=== PATIENT | female | born 1955 | race Caucasian/White ===

== ENCOUNTER 2020-09-28 23:15 | Inpatient (IN) | payer BC ==
[~2020-09-28] VITALS: Ht 165.1 cm; Wt 101.8 kg
--- NOTE | 2020-09-28 23:55 | NUR ---
rec'd call from [facility] [place] they state her rapid covid was negative
[2020-09-29] MEDS ORDERED: ASPI81TA30 PO (00:16)
[2020-09-29] MEDS ORDERED: PREG200C PO (00:16)
[2020-09-29] MEDS ORDERED: HYDR-3965 PO (00:16)
[2020-09-29] MEDS ORDERED: SEVE800T8 PO (00:16)
[2020-09-29] MEDS ORDERED: NYSPWD TP (00:16)
[2020-09-29] MEDS ORDERED: FLUO40CA10 PO (00:16)
[2020-09-29] MEDS ORDERED: FURO-149 PO (00:16)
[2020-09-29] MEDS ORDERED: FAMO40TA73 PO (00:16)
[2020-09-29] MEDS ORDERED: ALPR1TAB2 PO (00:16)
[2020-09-29] MEDS ORDERED: OMEP-50 PO (00:16)
[2020-09-29] MEDS ORDERED: FLUO40CA PO (00:16)
[2020-09-29] MEDS ORDERED: ATOR20TA66 PO (00:16)
--- NOTE | 2020-09-29 00:16 | NUR ---
spoke with brittany on phone for med rec. [phone] informed of visitor policy
[2020-09-29] MEDS ORDERED: ondansetron/PF 4mg/2ml inj IV ONE (00:25)
[2020-09-29] MEDS ORDERED: morphine 4 MG/ML inj SYRINge IV ONE (00:25)
[2020-09-29] MEDS ORDERED: potassium Cl 20 mEq SR tablet PO STA (00:28)
[2020-09-29 00:57] LABS: ALANINE AMINOTRANSFERASE 15 U/L (12-78); ALBUMIN 2.4 G/DL (3.4-5.0); ALBUMIN/GLOBULIN RATIO 0.7 (1.1-1.5); ALKALINE PHOSPHATASE 65 IU/L (46-116); ANION GAP 15 (8-16); ASPARTATE AMINO TRANSFERASE 22 U/L (10-37); BILIRUBIN,TOTAL 0.3 MG/DL (0.1-1.0); BLOOD UREA NITROGEN 55 MG/DL (7-18); BUN/CREATININE RATIO 6.4 (6.6-38.0); CALCIUM 7.4 MG/DL (8.5-10.1); CHLORIDE 103 MMOL/L (99-107); CREATININE 8.57 MG/DL (0.40-0.90); GLUCOSE 99 MG/DL (70-104); POTASSIUM 3.2 MMOL/L (3.5-5.1); SODIUM 140 MMOL/L (135-145); TOTAL CARBON DIOXIDE 22.4 MMOL/L (24-32); TOTAL PROTEIN 5.7 G/DL (6.4-8.2); eGFR 5 ML/MIN
[2020-09-29 00:58] LABS: BASOPHILS % (AUTO) 0.2 % (0-1); EOSINOPHILS % (AUTO) 0 % (0-6); HEMOGLOBIN 9.6 g/dl (12.0-16.0); LYMPHOCYTES # (AUTO) 2.8 X10'3 (1.1-4.8); LYMPHOCYTES % (AUTO) 15.8 % (21-51); MEAN CORPUSCULAR HEMOGLOBIN 31.4 PG (27.0-31.0); MEAN CORPUSCULAR HGB CONC 34.4 g/dL (33.0-36.5); MEAN CORPUSCULAR VOLUME 91.4 FL (78-98); MEAN PLATELET VOLUME 9.7 FL (7.4-10.4); MONOCYTES # (AUTO) 1.1 X10'3 (0-0.9); MONOCYTES % (AUTO) 6.4 % (2-12); NEUTROPHILS # (AUTO) 13.8 X10'3 (1.8-7.7); NEUTROPHILS % (AUTO) 77.6 % (42-75); PLATELET COUNT 142 X10'3 (140-440); RED BLOOD COUNT 3.06 X10'6 (4.20-5.60); WHITE BLOOD COUNT 17.8 X10'3 (4.5-11.0)
--- NOTE | 2020-09-29 01:32 | NUR ---
pt back from [place] - pt medicated per JAN. Denies additional needs at this time.
[2020-09-29] MEDS ORDERED: ondansetron/PF 4mg/2ml inj IV PRN (02:55)
[2020-09-29] MEDS ORDERED: acetaminophen 650mg rectal suppository RC PRN (02:55)
[2020-09-29] MEDS ORDERED: acetaminophen 325mg tablet PO PRN ×2 (02:55)
[2020-09-29 04:53] VITALS: BP 89/53
--- NOTE | 2020-09-29 05:12 | NUR ---
to room and oriented to surrounding and procedures--verbalized understanding
--- NOTE | 2020-09-29 06:35 | NUR ---
Patient in room PCU 3013. I have received report from josh DYER and had the opportunity to ask questions and assume patient care.
[2020-09-29 07:00] VITALS: BP 87/52
[2020-09-29] MEDS: furosemide 40mg tablet PO SCH ×2 (08:00→20:02)
[2020-09-29] MEDS ORDERED: ALPRAZolam 0.5mg tablet PO PRN (08:00)
[2020-09-29] MEDS ORDERED: non-formulary drug (Fluoxetine HCl (Prozac) 1 CAP) PO SCH (08:00)
[2020-09-29] MEDS ORDERED: levoFLOXACIN-Levaquin 250mg/D5 50 ML IV SCH (08:00)
[2020-09-29] MEDS: famotidine 20mg tablet PO SCH (08:56)
[2020-09-29] MEDS: aspirin 81mg tablet.DR PO SCH (08:56)
[2020-09-29] MEDS: pantoprazole 40mg Tablet.DR PO SCH ×2 (08:56→20:08)
[2020-09-29] MEDS: docusate sod 100mg capsule PO SCH ×2 (08:57→20:01)
[2020-09-29] MEDS: atorvastatin 20mg tablet PO SCH (08:57)
[2020-09-29] MEDS: HYDROcodone/acetaminophen 5mg/325mg tablet PO SCH ×3 (08:57→20:12)
[2020-09-29] MEDS: pregabalin 25mg capsule PO SCH ×2 (08:58→20:07)
[2020-09-29] MEDS: pregabalin 75mg capsule PO SCH ×2 (08:58→20:07)
[2020-09-29] MEDS: FLUoxetine 20mg capsule PO SCH (08:59)
[2020-09-29] MEDS: heparin, porcine 5000 units/ml vial SQ SCH ×2 (09:00→20:09)
[2020-09-29] MEDS: sevelamer carbonate 800mg tablet PO SCH ×3 (09:19→18:37)
[2020-09-29] MEDS ORDERED: methylPREDNISolone sod succ 125mg/2ml vial IV ONE (11:25)
[2020-09-29] MEDS ORDERED: normal saline 1000ml 1,000 ML IV ONE (11:25)
[2020-09-29 11:28] VITALS: BP 85/50
[2020-09-29] MEDS: ipratropium/albuterol 3ml nebule NEB SCH ×3 (13:00→20:19)
[2020-09-29 15:00] VITALS: BP 100/56
--- NOTE | 2020-09-29 15:00 | NUR ---
patient seen by Marce Hayes, order given to straight cath.as patient said even though she only pees a cup a day she felt distended and uncomfortable. 300 mls observed and specimen sent to lab Iv resited in right upper arm. Patient bolused 500mls NACL as B/P was 85/56. Rechecked 100/56 . patient appeared more stable following bolus, up to BR.will continue to monitor.
[2020-09-29 15:31] LABS: CLARITY,URINE SLIGHTLY CLOUDY (Clear); COLOR,URINE YELLOW (Yellow); UA COLLECTION TYPE STRAIGHT CATH
[2020-09-29 15:32] LABS: GLUCOSE, URINE NEGATIVE (Neg); KETONES,URINE NEGATIVE (Neg); LEUKOCYTE ESTERASE ,URINE NEGATIVE (Neg); NITRITES, URINE NEGATIVE (Neg); OCCULT BLOOD,URINE TRACE-INTACT (Neg); PROTEIN,URINE NEGATIVE (Neg); UROBILINOGEN,URINE 0.2 E.U/dL (0.2-1.0)
[2020-09-29 15:35] LABS: COARSE GRANULAR CAST 0-3 /LPF (NEGATIVE); SQUAMOUS EPITHELIAL CELL,UR FEW /LPF (FEW)
[2020-09-29 15:37] LABS: AMORPHOUS URATES 1+
[2020-09-29 15:38] LABS: BACTERIA,URINE FEW /HPF (Neg); TRANSITIONAL EPI CELLS,URINE FEW /HPF
[2020-09-29 15:39] LABS: WBC,URINE 0-4 /HPF (0-4)
[2020-09-29 18:00] VITALS: BP 100/44
--- NOTE | 2020-09-29 18:50 | NUR ---
Patient in room [facility] 3013. I have received report from Argelia DYER and had the opportunity to ask questions and assume patient care. Addendum: 09/30/20 at 0034 by Tiff May RN Report from Blanca DYER, not Argelia
--- NOTE | 2020-09-29 18:50 | NUR ---
Problems reprioritized. Patient report given, questions answered & plan of care reviewed with Tiff DYER.
[2020-09-29] MEDS: lactobacillus rhamnosus 10,000 MMU CELLS/CAPSULE PO SCH (20:01)
[2020-09-29] MEDS: methylPREDNISolone sod succ 125mg/2ml vial IV SCH (20:15)
[2020-09-29 22:00] VITALS: BP 101/48
--- NOTE | 2020-09-30 00:43 | NUR ---
Earlier on in the shift patient had stated that she felt a little shaky after being hooked up to dialysis. offered to take Accu check just incase and patient agreed. When I came back to room with Accu check machine, patient changed her mind stating that she just needs to go to sleep. Patient has been sleeping/snoring and in no apparent distress thus far.
[2020-09-30 02:00] VITALS: BP 98/56
[2020-09-30] MEDS: methylPREDNISolone sod succ 125mg/2ml vial IV SCH ×2 (02:45→07:39)
[2020-09-30 05:13] LABS: BASOPHILS % (AUTO) 0.1 % (0-1); EOSINOPHILS % (AUTO) 0 % (0-6); HEMATOCRIT 28.5 % (35.0-45.0); HEMOGLOBIN 9.6 g/dl (12.0-16.0); LYMPHOCYTES # (AUTO) 0.6 X10'3 (1.1-4.8); LYMPHOCYTES % (AUTO) 8.8 % (21-51); MEAN CORPUSCULAR HGB CONC 33.5 g/dL (33.0-36.5); MEAN CORPUSCULAR VOLUME 92.6 FL (78-98); MEAN PLATELET VOLUME 9.8 FL (7.4-10.4); MONOCYTES # (AUTO) 0.1 X10'3 (0-0.9); MONOCYTES % (AUTO) 1.6 % (2-12); NEUTROPHILS # (AUTO) 6.3 X10'3 (1.8-7.7); NEUTROPHILS % (AUTO) 89.5 % (42-75); PLATELET COUNT 139 X10'3 (140-440); RED BLOOD COUNT 3.08 X10'6 (4.20-5.60); RED CELL DISTRIBUTION WIDTH 13.9 % (11.5-14.5)
[2020-09-30 05:25] LABS: ALBUMIN 2.6 G/DL (3.4-5.0); ANION GAP 16 (8-16); BLOOD UREA NITROGEN 59 MG/DL (7-18); CALCIUM 8.2 MG/DL (8.5-10.1); CHLORIDE 103 MMOL/L (99-107); CREATININE 8.39 MG/DL (0.40-0.90); GLUCOSE 306 MG/DL (70-104); MAGNESIUM 1.9 MG/DL (1.5-2.4); PHOSPHORUS 6.4 MG/DL (2.3-4.5); POTASSIUM 3.4 MMOL/L (3.5-5.1); SODIUM 139 MMOL/L (135-145); TOTAL CARBON DIOXIDE 19.9 MMOL/L (24-32); eGFR 5 ML/MIN
[2020-09-30 06:00] VITALS: BP 109/65
--- NOTE | 2020-09-30 06:46 | NUR ---
Problems reprioritized. Patient report given, questions answered & plan of care reviewed with Elia RN.
[2020-09-30] MEDS: ipratropium/albuterol 3ml nebule NEB SCH ×4 (06:52→20:03)
--- NOTE | 2020-09-30 07:04 | NUR ---
Patient in room PCU 3013. I have received report from GOMEZ SIMMS and had the opportunity to ask questions and assume patient care.
[2020-09-30] MEDS: docusate sod 100mg capsule PO SCH ×2 (07:39→19:44)
[2020-09-30] MEDS: lactobacillus rhamnosus 10,000 MMU CELLS/CAPSULE PO SCH ×2 (07:40→19:56)
[2020-09-30] MEDS: aspirin 81mg tablet.DR PO SCH (07:40)
[2020-09-30] MEDS: atorvastatin 20mg tablet PO SCH (07:42)
[2020-09-30] MEDS: pregabalin 25mg capsule PO SCH ×2 (07:42→19:44)
[2020-09-30] MEDS: furosemide 40mg tablet PO SCH ×2 (07:42→19:45)
[2020-09-30] MEDS: pregabalin 75mg capsule PO SCH ×2 (07:43→19:45)
[2020-09-30] MEDS: HYDROcodone/acetaminophen 5mg/325mg tablet PO SCH ×3 (07:44→21:50)
[2020-09-30] MEDS: famotidine 20mg tablet PO SCH (07:44)
[2020-09-30] MEDS: pantoprazole 40mg Tablet.DR PO SCH ×2 (07:45→19:45)
[2020-09-30] MEDS: FLUoxetine 20mg capsule PO SCH (07:45)
[2020-09-30] MEDS: sevelamer carbonate 800mg tablet PO SCH ×3 (07:47→17:40)
[2020-09-30] MEDS: heparin, porcine 5000 units/ml vial SQ SCH ×2 (07:48→19:46)
[2020-09-30] MEDS ORDERED: albumin (human) 25% 100ml IV 100 ML IV PRN (08:20)
[2020-09-30] MEDS ORDERED: heparin 1,000unit/ml 10ml vial 10 ML IV ONE (08:20)
[2020-09-30] MEDS ORDERED: epoetin 20,000 units/ml inj IV ONE (08:20)
[2020-09-30] MEDS ORDERED: heparin 1,000 units/ml 10ml inj HE ONE ×2 (08:25)
[2020-09-30] MEDS ORDERED: pneumococcal 23-VAL P-sac vacc 25 mcg/0.5ml vial IMVAC ONE (10:00)
[2020-09-30 11:00] VITALS: BP 112/52
[2020-09-30 15:00] VITALS: BP 110/60
--- NOTE | 2020-09-30 15:41 | NUR ---
PAGED HD RN MECHELLE, INFORMED OF ORDER FOR HD TODAY, AND MISCC NURSINF ORDER FOR [employer]CC PD EFFLUENT TO LAB IN AM FOR CR, UREA, AND GLUCOSE.
[2020-09-30] MEDS ORDERED: potassium Cl 20 mEq SR tablet PO SCH (17:30)
[2020-09-30 18:00] VITALS: BP 108/59
--- NOTE | 2020-09-30 18:26 | NUR ---
Patient in room PCU 3013B. I have received report from GOMEZ Rodrigez and had the opportunity to ask questions and assume patient care.
--- NOTE | 2020-09-30 18:34 | NUR ---
Problems reprioritized. Patient report given, questions answered & plan of care reviewed with GOMZE EARLY.
[2020-09-30 22:00] VITALS: BP 107/53
[2020-10-01 02:00] VITALS: BP 112/60
[2020-10-01] MEDS ORDERED: lactulose 20gm/30ml cup PO PRN (02:55)
[2020-10-01 05:15] LABS: BASOPHILS % (AUTO) 0 % (0-1); EOSINOPHILS % (AUTO) 0 % (0-6); HEMATOCRIT 26.8 % (35.0-45.0); LYMPHOCYTES # (AUTO) 1.7 X10'3 (1.1-4.8); LYMPHOCYTES % (AUTO) 11.3 % (21-51); MEAN CORPUSCULAR HEMOGLOBIN 30.8 PG (27.0-31.0); MEAN CORPUSCULAR HGB CONC 33.5 g/dL (33.0-36.5); MEAN CORPUSCULAR VOLUME 91.9 FL (78-98); MEAN PLATELET VOLUME 9.8 FL (7.4-10.4); MONOCYTES # (AUTO) 0.8 X10'3 (0-0.9); MONOCYTES % (AUTO) 5.7 % (2-12); NEUTROPHILS # (AUTO) 12.2 X10'3 (1.8-7.7); PLATELET COUNT 153 X10'3 (140-440); RED BLOOD COUNT 2.91 X10'6 (4.20-5.60); WHITE BLOOD COUNT 14.7 X10'3 (4.5-11.0)
[2020-10-01 05:39] LABS: ALBUMIN 2.5 G/DL (3.4-5.0); ANION GAP 17 (8-16); BLOOD UREA NITROGEN 61 MG/DL (7-18); BUN/CREATININE RATIO 7.5 (6.6-38.0); CALCIUM 8.3 MG/DL (8.5-10.1); CHLORIDE 103 MMOL/L (99-107); CREATININE 8.16 MG/DL (0.40-0.90); GLUCOSE 141 MG/DL (70-104); MAGNESIUM 1.8 MG/DL (1.5-2.4); PHOSPHORUS 6.3 MG/DL (2.3-4.5); SODIUM 143 MMOL/L (135-145); TOTAL CARBON DIOXIDE 23.2 MMOL/L (24-32); eGFR 5 ML/MIN
[2020-10-01 05:44] LABS: POTASSIUM 2.7 MMOL/L (3.5-5.1)
[2020-10-01] MEDS ORDERED: potassium Cl 20 mEq SR tablet PO STA (05:49)
[2020-10-01 06:00] VITALS: BP 116/58
--- NOTE | 2020-10-01 06:10 | NUR ---
Problems reprioritized. Patient report given, questions answered & plan of care reviewed with GOMEZ Clifton.
--- NOTE | 2020-10-01 06:21 | NUR ---
Patient in room PCU 3013. I have received report from Lidia DYER and had the opportunity to ask questions and assume patient care. Patient awake and oriented, offers no complaints, will continue to monitor.
[2020-10-01] MEDS: sevelamer carbonate 800mg tablet PO SCH ×3 (07:55→17:35)
[2020-10-01] MEDS: atorvastatin 20mg tablet PO SCH (07:56)
[2020-10-01] MEDS: pregabalin 75mg capsule PO SCH ×2 (07:56→21:29)
[2020-10-01] MEDS: lactobacillus rhamnosus 10,000 MMU CELLS/CAPSULE PO SCH ×2 (07:56→21:27)
[2020-10-01] MEDS: furosemide 40mg tablet PO SCH ×2 (07:56→21:29)
[2020-10-01] MEDS: docusate sod 100mg capsule PO SCH (07:56)
[2020-10-01] MEDS: aspirin 81mg tablet.DR PO SCH (07:56)
[2020-10-01] MEDS: pregabalin 25mg capsule PO SCH ×2 (07:56→21:28)
[2020-10-01] MEDS: heparin, porcine 5000 units/ml vial SQ SCH ×2 (07:57→21:31)
[2020-10-01] MEDS: HYDROcodone/acetaminophen 5mg/325mg tablet PO SCH ×3 (07:57→21:32)
[2020-10-01] MEDS: FLUoxetine 20mg capsule PO SCH (07:57)
[2020-10-01] MEDS: famotidine 20mg tablet PO SCH (07:57)
[2020-10-01] MEDS: pantoprazole 40mg Tablet.DR PO SCH ×2 (07:57→21:30)
[2020-10-01] MEDS: ipratropium/albuterol 3ml nebule NEB SCH ×4 (08:00→20:44)
--- NOTE | 2020-10-01 09:07 | NUR ---
30 ml effluent sample obtained for Cr. BUN and glusose levels. Pt. tolerated 1200 ml UF for last PM PD. Vital signs obtained, documented, last BP116/57 after disconnect from PD cycler.
[2020-10-01 11:00] VITALS: BP 96/51
[2020-10-01] MEDS: potassium Cl 20 mEq SR tablet PO SCH ×3 (13:05→21:32)
[2020-10-01] MEDS: potassium Cl 10 mEq/100mL bag IV SCH ×3 (13:07→21:31)
--- NOTE | 2020-10-01 13:28 | NUR ---
Rm 9410M, Brothers. Can you please come put PIV in, pt will be getting K replacement QID. PT says she is hard stick.
[2020-10-01 15:00] VITALS: BP 106/56
--- NOTE | 2020-10-01 15:25 | NUR ---
rM 2133B, Zev. Pt needs new PIV will you be able to? Thanks
[2020-10-01] MEDS: lactulose 20gm/30ml cup PO SCH (17:33)
[2020-10-01 18:00] VITALS: BP 117/58
--- NOTE | 2020-10-01 18:15 | NUR ---
Problems reprioritized. Patient report given, questions answered & plan of care reviewed with oLbo DYER.
--- NOTE | 2020-10-01 18:40 | NUR ---
I have received report from HT RN and had the opportunity to ask questions and assume patient care.
[2020-10-01] MEDS ORDERED: polyethylene glycol 3350 17gm powd pack PO SCH (21:00)
[2020-10-01] MEDS ORDERED: docusate sod 250mg capsule PO SCH (21:00)
[2020-10-01 22:00] VITALS: BP 111/55
[2020-10-02] MEDS: lactulose 20gm/30ml cup PO SCH ×2 (00:05→08:00)
[2020-10-02 02:00] VITALS: BP 112/65
--- NOTE | 2020-10-02 03:29 | NUR ---
pt is shaky and saying she doesn't feel well. pt has not ate much while here. i tried to check pt blood sugar but pt refused. pt was educated on low blood sugar and the importance of checking to see if blood sugar is low. pt refused to have blood sugar checked again. will continue to monitor pt
[2020-10-02 05:59] LABS: BASOPHILS % (AUTO) 0.4 % (0-1); EOSINOPHILS % (AUTO) 0 % (0-6); HEMATOCRIT 31.4 % (35.0-45.0); HEMOGLOBIN 10.7 g/dl (12.0-16.0); LYMPHOCYTES # (AUTO) 1.6 X10'3 (1.1-4.8); MEAN CORPUSCULAR HEMOGLOBIN 31.4 PG (27.0-31.0); MEAN CORPUSCULAR VOLUME 92.4 FL (78-98); MONOCYTES # (AUTO) 0.7 X10'3 (0-0.9); NEUTROPHILS # (AUTO) 7.3 X10'3 (1.8-7.7); NEUTROPHILS % (AUTO) 75.6 % (42-75); PLATELET COUNT 156 X10'3 (140-440); RED CELL DISTRIBUTION WIDTH 14.5 % (11.5-14.5); WHITE BLOOD COUNT 9.6 X10'3 (4.5-11.0)
[2020-10-02 06:00] VITALS: BP 133/80
[2020-10-02 06:19] LABS: ALANINE AMINOTRANSFERASE 19 U/L (12-78); ALBUMIN 2.9 G/DL (3.4-5.0); ALBUMIN/GLOBULIN RATIO 0.7 (1.1-1.5); ALKALINE PHOSPHATASE 73 IU/L (46-116); ANION GAP 15 (8-16); ASPARTATE AMINO TRANSFERASE 16 U/L (10-37); BILIRUBIN,TOTAL 0.2 MG/DL (0.1-1.0); BLOOD UREA NITROGEN 54 MG/DL (7-18); BUN/CREATININE RATIO 6.6 (6.6-38.0); CALCIUM 9.3 MG/DL (8.5-10.1); CHLORIDE 107 MMOL/L (99-107); CREATININE 8.19 MG/DL (0.40-0.90); GLUCOSE 229 MG/DL (70-104); MAGNESIUM 1.9 MG/DL (1.5-2.4); PHOSPHORUS 5.3 MG/DL (2.3-4.5); POTASSIUM 3.7 MMOL/L (3.5-5.1); SODIUM 146 MMOL/L (135-145); TOTAL CARBON DIOXIDE 23.6 MMOL/L (24-32); TOTAL PROTEIN 6.9 G/DL (6.4-8.2); eGFR 5 ML/MIN
[2020-10-02 06:25] LABS: HEMOGLOBIN A1C 6.2 % (4.5-6.2)
--- NOTE | 2020-10-02 06:41 | NUR ---
Problems reprioritized. Patient report given, questions answered & plan of care reviewed with Linda DYER.
--- NOTE | 2020-10-02 06:46 | NUR ---
Patient in room PCU 3013. I have received report from GOMEZ Avilez and had the opportunity to ask questions and assume patient care.
--- NOTE | 2020-10-02 07:28 | NUR ---
pt. refused [id number] svn
[2020-10-02] MEDS: potassium Cl 10 mEq/100mL bag IV SCH (08:00)
[2020-10-02] MEDS: pantoprazole 40mg Tablet.DR PO SCH (09:56)
[2020-10-02] MEDS: aspirin 81mg tablet.DR PO SCH (09:57)
[2020-10-02] MEDS: pregabalin 75mg capsule PO SCH (09:57)
[2020-10-02] MEDS: FLUoxetine 20mg capsule PO SCH (09:57)
[2020-10-02] MEDS: atorvastatin 20mg tablet PO SCH (09:57)
[2020-10-02] MEDS: potassium Cl 20 mEq SR tablet PO SCH ×2 (09:58→13:53)
[2020-10-02] MEDS: pregabalin 25mg capsule PO SCH (09:58)
[2020-10-02] MEDS: sevelamer carbonate 800mg tablet PO SCH ×2 (09:59→12:26)
[2020-10-02] MEDS: furosemide 40mg tablet PO SCH (09:59)
[2020-10-02] MEDS: HYDROcodone/acetaminophen 5mg/325mg tablet PO SCH ×2 (09:59→12:27)
[2020-10-02] MEDS: lactobacillus rhamnosus 10,000 MMU CELLS/CAPSULE PO SCH (10:00)
[2020-10-02] MEDS: famotidine 20mg tablet PO SCH (10:00)
[2020-10-02] MEDS: heparin, porcine 5000 units/ml vial SQ SCH (10:03)
[2020-10-02 11:00] VITALS: BP 107/63
[2020-10-02] MEDS: ipratropium/albuterol 3ml nebule NEB SCH (11:00)
[2020-10-02] MEDS ORDERED: levoFLOXACIN 250mg tablet PO SCH (11:00)
[2020-10-02] MEDS ORDERED: POTA20TA10 PO (14:01)
--- NOTE | 2020-10-02 15:54 | NUR ---
Pt discharge home in stable condition. Discharge and medication instruction given to pt. IV and tele box removed. Pt was escorted to main lobby on w/c. Left the hospital via private vehicle accompanied by family member.
== END 2020-10-02 15:30 | disposition home or self-care (01) | DRG 682 ==
LOC: ER 23:18 → ED HOLD 09-29 02:54 → PCU 3S 09-29 04:14
PROVIDERS: ADMIT Internal Medicine Critical Care Medicine; ATTEND Internal Medicine Critical Care Medicine
PROC: 5A1D70Z Performance of Urinary Filtration, Intermittent, Less than 6 Hours Per Day (ICD-10-PCS; 2020-09-29)
PROC: 3E0234Z Introduction of Serum, Toxoid and Vaccine into Muscle, Percutaneous Approach (ICD-10-PCS; principal; 2020-09-30)
PROC: 5A1D70Z Performance of Urinary Filtration, Intermittent, Less than 6 Hours Per Day (ICD-10-PCS; 2020-09-30)
PROC: 5A1D70Z Performance of Urinary Filtration, Intermittent, Less than 6 Hours Per Day (ICD-10-PCS; 2020-10-01)
DX: I12.0 Hypertensive chronic kidney disease with stage 5 chronic kidney disease or end stage renal disease (principal); J18.9 Pneumonia, unspecified organism; N18.6 End stage renal disease; M48.00 Spinal stenosis, site unspecified; M19.09 Primary osteoarthritis, other specified site; E87.6 Hypokalemia; F41.9 Anxiety disorder, unspecified; F32.9 Major depressive disorder, single episode, unspecified; G89.29 Other chronic pain; M79.7 Fibromyalgia; M54.5 Low back pain; Z99.2 Dependence on renal dialysis; Z88.0 Allergy status to penicillin; Z23 Encounter for immunization
CPT/HCPCS: 36415; 71045; 71046; 72131; 72192; 74018; 76937; 80048; 80053; 81001; 82570; 82945; 83036; 83605; 83735; 84100; 84145; 84540; 85025; 87040; 87081; 90732; 93005; 94640; 94760; 96374; 97110; 97116; 97161; 97530; 99285; E1594; G0378; J1644; J1956; J2270; J2405; J2930; J3480; J7030